=== PATIENT | female | born 1955 | race Caucasian/White ===

== ENCOUNTER 2017-11-28 06:42 | Day surgery (SDC) | payer BC ==
[~2017-11-28] VITALS: Ht 177.8 cm; Wt 64.9 kg
[2017-11-28 07:15] VITALS: BP 118/73; PULSE 56; TEMP 97.6
[2017-11-28] MEDS ORDERED: ASPIRIN E.C. 8181 MG PO (07:20)
[2017-11-28] MEDS ORDERED: MASON NATURAL2000 IU PO (07:21)
[2017-11-28] MEDS ORDERED: TOPROL XL 25MG25 MG PO (07:22)
[2017-11-28] MEDS ORDERED: SYNTHROID0.088 MG/T PO (07:22)
[2017-11-28 09:00] VITALS: BP 109/60; PULSE 54; TEMP 97.5
[2017-11-28 09:15] VITALS: BP 101/51; PULSE 47
== END 2017-11-28 09:50 | disposition home or self-care (01) ==
LOC: SDCO 06:42
DX: R19.7 Diarrhea, unspecified (principal); K59.00 Constipation, unspecified; K21.9 Gastro-esophageal reflux disease without esophagitis; Z79.82 Long term (current) use of aspirin; Z90.710 Acquired absence of both cervix and uterus; Z80.0 Family history of malignant neoplasm of digestive organs
CPT/HCPCS: OP; J2250; J3010; J7030

== ENCOUNTER → 2017-12-15 | Outpatient (CLI) | payer BC ==
[~2017-12-15] MED LIST: ASPIRIN E.C. 8181 MG PO; MASON NATURAL2000 IU PO; SYNTHROID0.088 MG/T PO; TOPROL XL 25MG25 MG PO
== END ==
LOC: MC.RAD 09:56
DX: Z12.31 Encounter for screening mammogram for malignant neoplasm of breast (principal); R92.0 Mammographic microcalcification found on diagnostic imaging of breast; Z98.890 Other specified postprocedural states

== ENCOUNTER → 2017-12-25 | Outpatient (CLI) | payer BC | LOC: MC.RAD 10:44 | DX: R92.0 Mammographic microcalcification found on diagnostic imaging of breast (principal) ==

== ENCOUNTER → 2019-01-01 | Outpatient (CLI) | payer BC | LOC: MC.RAD 10:33 | DX: N63.20 Unspecified lump in the left breast, unspecified quadrant (principal) | CPT/HCPCS: G0279 ==

== ENCOUNTER → 2019-05-05 | Outpatient (CLI) | payer BC | LOC: COL.RAD 08:04 | DX: E03.9 Hypothyroidism, unspecified (principal) ==

== ENCOUNTER → 2020-01-07 | Outpatient (CLI) | payer BC | LOC: MC.RAD 13:33 | DX: Z12.31 Encounter for screening mammogram for malignant neoplasm of breast (principal) ==

== ENCOUNTER → 2021-01-08 | Outpatient (CLI) | payer BC | LOC: MC.RAD | DX: Z12.31 Encounter for screening mammogram for malignant neoplasm of breast (principal); Z98.890 Other specified postprocedural states; Z98.82 Breast implant status ==

== ENCOUNTER → 2022-02-07 | Outpatient (CLI) | payer BC | LOC: MC.RAD 09:41 | DX: Z12.31 Encounter for screening mammogram for malignant neoplasm of breast (principal) ==

== ENCOUNTER → 2022-05-03 | Outpatient (CLI) | payer BC | LOC: MC.RAD 10:00 | DX: N63.20 Unspecified lump in the left breast, unspecified quadrant (principal) ==

== ENCOUNTER 2023-09-01 07:48 | Day surgery (SDC) | payer BC ==
[2023-09-01] VITALS (12 sets, daily range): BP systolic 94–121; BP diastolic 49–73; PULSE 58–91; TEMP 97.6–98.4
[~2023-09-01] VITALS: Ht 175.3 cm; Wt 65.9 kg
[~2023-09-01 07:48] MED LIST changes: +ANORO IH; +CEPHALEXIN500 M1 PO; +CLIMARA 0.1 PATCH.WK TD; +DOXYCYCLINE 10100 MG PO; +FLONASEALLERGY NS; +IMODIUM A-D2 MG PO; +NORCO 325 MG-51 TAB PO; +SYNTHROID0.075 MG/T PO; +TRIAMCINOLONE A15 G1 TP
[2023-09-01] MEDS ORDERED: RT ADVAIR HFA 1112 G IH (08:50)
[2023-09-01] MEDS ORDERED: PRINIVIL2.5 MG PO (08:57)
[2023-09-01] MEDS ORDERED: JARDIANCE10 (08:59)
[2023-09-01] MEDS ORDERED: ELIQUIS 5MG PO (09:00)
[2023-09-01 09:05] LABS: CALCIUM 9.6 mg/dL (8.4-10.2); CREATININE, serum 0.8 mg/dL (0.57-1.11); HEMATOCRIT 42.5 % (37.0-47.0); HEMOGLOBIN 14.4 g/dl (12.5-16.0); MEAN CELL VOLUME 89 fl (80.0-100.0); MEAN CORPUSCULAR HEMOGLOBIN 30 pg (27-31); MEAN CORPUSCULAR HGB CONC 34 g/dl (33.0-37.0); MEAN PLATELET VOLUME 10.2 fl (7.4-10.4); PLATELET COUNT 200 K/mm3 (130-400); REDCELL DISTRIBUTION WIDTH-CV 12.4 % (11.5-14.5)
[2023-09-01 09:08] LABS: INR 1.1 (0.8-3.0); PROTHROMBIN TIME 12.4 SECONDS (9.7-12.8)
[2023-09-02 00:10] VITALS: BP_SYST 107
--- NOTE | 2023-09-02 00:38 | NUR ---
patient lying in bed, alert and oriented x4. pt denies chest pain and shortness of breath. pt reports some soreness/tenderness rated as 1/10 during rest and 5/10 with movement at left chest pacemaker site. pressure dressing on site currently and ice applied around the site, per pt request, tylenol given. IV in the LF is patent, site is clean dry and intact. pt has no remarkble skin findings. pt has no further needs, questions, or concerns at this time. call light within reach, will continue to monitor.
[2023-09-02 03:12] VITALS: BP 125/68; PULSE 63; TEMP 97.9
[2023-09-02 04:05] VITALS: BP_SYST 125
[2023-09-02 05:28] LABS: BASO % 0.8 % (0.0-2.0); EOS # 0.2 K/mm3 (0.0-0.7); EOS % 4.9 % (0.0-4.0); GRAN # 2.6 K/mm3 (1.4-6.5); GRAN % 53.2 % (42.2-75.2); HEMATOCRIT 40.2 % (37.0-47.0); HEMOGLOBIN 14.2 g/dl (12.5-16.0); LYMPH # 1.6 K/mm3 (1.2-3.4); LYMPH % 33.3 % (20.0-51.0); MEAN CELL VOLUME 87 fl (80.0-100.0); MEAN CORPUSCULAR HEMOGLOBIN 31 pg (27-31); MEAN CORPUSCULAR HGB CONC 35 g/dl (33.0-37.0); MEAN PLATELET VOLUME 9.9 fl (7.4-10.4); MONO # 0.4 K/mm3 (0.1-0.6); MONO % 7.6 % (1.7-9.3); PLATELET COUNT 167 K/mm3 (130-400); RED BLOOD COUNT 4.64 M/mm3 (4.10-5.30); REDCELL DISTRIBUTION WIDTH-CV 12.3 % (11.5-14.5)
[2023-09-02 05:43] LABS: CREATININE, serum 0.73 mg/dL (0.57-1.11); POTASSIUM 4.2 mmol/L (3.5-4.5)
[2023-09-02 07:19] VITALS: BP 120/69; PULSE 60; TEMP 97.5
--- NOTE | 2023-09-02 07:53 | NUR ---
Patient awake, alert and oriented. States she has some tenderness at her incision site but is feeling okay, denies chest pain, dizziness, or shortness of breath. Ice applied to site. Device downloaded, xray notified of chest xray order. Patient sitting in bed, at the bedside. Denies further needs at this time. Bed in lowest position with call light within reach.
[2023-09-02 09:14] VITALS: BP_SYST 120
[2023-09-02] MEDS ORDERED: CEPHALEXIN500 M1 PO (09:55)
--- NOTE | 2023-09-02 09:56 | NUR ---
Initial visit; Patient and her thanked [employer] for stopping by and offering God's blessings. [employer] kallie keep Vilma in her prayers.
--- NOTE | 2023-09-02 10:51 | NUR ---
Patient discharged to home, driven home by . Educated on new medications, incision care and discharge instructions. Pt verbalized understanding. IV and awake overnight monitor removed prior to discharge. Assisted out to car by nursing staff, all belongings sent home with patient.
== END 2023-09-02 10:45 | disposition home or self-care (01) ==
LOC: COL.CAR 07:48 → MEDICAL 12:35 → COL.CAR 09-02 10:45
PROVIDERS: Internal Medicine Cardiovascular Disease
DX: I42.9 Cardiomyopathy, unspecified (principal)
CPT/HCPCS: OP; A9270; C1769; C1894; C1900; C2621; J0665; J0690; J1200; J2250; J3010; J7030; Q9967

== ENCOUNTER 2023-10-31 12:17 | Outpatient (RCR) | payer BC ==
[~2023-10-31 12:17] MED LIST changes: +ELIQUIS 5MG PO; +JARDIANCE10; +PRINIVIL2.5 MG PO; +RT ADVAIR HFA 1112 G IH
== END 2023-11-02 | disposition home or self-care (01) ==
LOC: COL.CR
DX: I50.9 Heart failure, unspecified (principal); I47.10 Supraventricular tachycardia, unspecified; I49.3 Ventricular premature depolarization; I49.5 Sick sinus syndrome; I44.1 Atrioventricular block, second degree; I42.8 Other cardiomyopathies; Z95.0 Presence of cardiac pacemaker

== ENCOUNTER → 2023-12-03 | Outpatient (RCR) | payer BC | END | disposition home or self-care (01) | LOC: COL.CR | DX: Z48.812 Encounter for surgical aftercare following surgery on the circulatory system (principal); I42.8 Other cardiomyopathies; Z95.0 Presence of cardiac pacemaker; I44.1 Atrioventricular block, second degree; I47.10 Supraventricular tachycardia, unspecified; I49.3 Ventricular premature depolarization; I49.5 Sick sinus syndrome ==

== ENCOUNTER 2024-08-03 07:42 | Day surgery (SDC) | payer BC ==
[~2024-08-03] VITALS: Ht 177.8 cm; Wt 62.6 kg
[~2024-08-03 07:42] MED LIST changes: +ALDACTONE 25MG25 M1 PO; +LOPRESSOR 225 MG/TAB PO; +LR 1,000 ML IV SCH; +Ondansetron 4 MG/2 ML VIAL IV PRN; -PRINIVIL2.5 MG PO; -RT ADVAIR HFA 1112 G IH
[2024-08-03 08:03] VITALS: BP 106/59; PULSE 69; TEMP 97.1
[2024-08-03] MEDS ORDERED: ENTRESTO 24 MG1 EACH PO (08:15)
[2024-08-03] MEDS ORDERED: PROAIR HFA0.09 MG/AC IH (08:16)
--- NOTE | 2024-08-03 08:38 | NUR ---
The patient ambulated back to [place] [facility] independently using a steady gait and appeared to tolerate the activity well. Vital signs obtained. Consent signed. 20G IV started in right wrist with one stick, LR infusing without difficulty. Assessment completed. Home medications reconcilled. , Ori, at bedside. Warm blanket provided. The patient denies any further needs at this time.
[2024-08-03] MEDS ORDERED: Ondansetron 4 MG/2 ML VIAL ONE (09:15)
[2024-08-03] MEDS ORDERED: Lidocaine PF 2% (20 MG/ML) 5 ML VIAL ONE (09:15)
[2024-08-03 10:10] VITALS: BP 88/58; PULSE 68; TEMP 97.1
[2024-08-03 10:25] VITALS: BP 98/62; PULSE 68
[2024-08-03 10:40] VITALS: BP 102/54; PULSE 64
--- NOTE | 2024-08-03 10:55 | NUR ---
1010 RETURNS TO ROOM 3 PER CART. AWAKE, ALERT. RESP UNLABORED. AMBULATES TO RECLINER WITH STANDBY ASSIST. DENIES NAUSEA, ABD/CHEST PAIN OR DYSPHAGIA. VITAL SIGNS OBTAINED. CALL LIGHT AT SIDE. IN ROOM 1025 TOLERATES PO JUICE WITHOUT NAUSEA. SWALLOWS WITHOUT DIFFICULTY 1030 DR. SUTTON HERE TO VISIT WITH PATIENT 1040 DISCHARGE INSTRUCTIONS REVIEWED. PATIENT VERBALIZES UNDERSTANDING. COPY PROVIDED IN DISCHARGE FOLDER 1050 DRESSES SELF
== END 2024-08-03 10:57 | disposition home or self-care (01) ==
LOC: SDCO 07:42
DX: K29.30 Chronic superficial gastritis without bleeding (principal); K92.1 Melena; K57.30 Diverticulosis of large intestine without perforation or abscess without bleeding; K64.0 First degree hemorrhoids; R15.2 Fecal urgency; G47.33 Obstructive sleep apnea (adult) (pediatric); I50.9 Heart failure, unspecified; Z95.0 Presence of cardiac pacemaker; Z79.01 Long term (current) use of anticoagulants; Z79.899 Other long term (current) drug therapy
CPT/HCPCS: J2405; J2704; J7120